=== PATIENT | female | born 2000 | race Hispanic/Latino ===

== ENCOUNTER 2021-02-19 20:25 | Inpatient (IN) | payer BC, OTHER ==
[2021-02-19 21:55] VITALS: BMI 48.4
[2021-02-19] MEDS ORDERED: Promethazine HCl 25 MG/ML VIAL IM PRN (22:50)
[2021-02-19] MEDS ORDERED: Calcium Gluconate 4.6 MEQ in Sodium Chloride 0.9% 100 ML IVPB PRN (22:50)
[2021-02-19] MEDS ORDERED: Butorphanol Tartrate 1 MG/ML VIAL SLOW IVP PRN (22:50)
[2021-02-19] MEDS ORDERED: hydrALAZINE 20 MG/ML VIAL SLOW IVP PRN (22:50)
[2021-02-19] MEDS ORDERED: Ondansetron PF 4 MG/2 ML Vial IVP PRN (22:50)
[2021-02-19] MEDS ORDERED: hydrALAZINE 20 MG/ML VIAL ONE ×2 (22:51→22:58)
[2021-02-19] MEDS ORDERED: hydrALAZINE 20 MG/ML VIAL SLOW IVP SCH (23:00)
[2021-02-19] MEDS ORDERED: Labetalol HCl 100 MG/20 ML VIAL ONE (23:30)
[2021-02-19] MEDS ORDERED: Labetalol HCl 100 MG/20 ML VIAL SLOW IVP SCH (23:30)
[2021-02-19] MEDS ORDERED: Furosemide 20 MG/2 ML VIAL SLOW IVP SCH ×2 (23:30→23:37)
[2021-02-19] MEDS ORDERED: Furosemide 20 MG/2 ML VIAL ONE (23:36)
[2021-02-19 23:37] LABS: Hemoglobin 9.8 g/dL (12.0-15.5); Mean Corpuscular HGB CONC 32.7 g/dL (32.0-36.0); Mean Corpuscular Hemoglobin 29.1 pg (27.0-33.0); Mean Platelet Volume 10.3 fl (7.4-10.4); Platelet Count 179 10x3/uL (150-450); RBC Distribution Width 13.9 % (11.5-14.5); Red Blood Cell (RBC) Count 3.37 10x6/uL (3.90-5.03); White Blood Cell (WBC) Count 13.9 10x3/uL (3.5-10.5)
[2021-02-20 00:11] LABS: Hep B Surf Ag Non-Reactive S/CO (NonReactive)
[2021-02-20] MEDS ORDERED: Enoxaparin Sodium 40 MG/0.4 ML SYRINGE SC SCH ×2 (00:15→09:00)
[2021-02-20 01:31] LABS: Syphilis Antibody Nonreactive (Nonreactive); Syphilis Antibody Index 0.03 S/CO (<1.00 Non-Reactive)
[2021-02-20 01:34] LABS: HBSAg Index 0.16 S/CO (0-0.99)
[2021-02-20] MEDS: Magnesium Sulfate 20 gm/500 ml 20 GM/500 ML BAG IVPB SCH ×3 (03:59→21:12)
[2021-02-20] MEDS ORDERED: Furosemide 20 MG/2 ML VIAL SLOW IVP SCH (05:30)
[2021-02-20 06:06] LABS: ALT (SGPT) 22 U/L (8-55); AST (SGOT) 17 U/L (5-34); Albumin 2.9 g/dL (3.5-5.0); Alkaline Phosphatase 47 U/L (40-110); Anion Gap 19 mmol/L (10-20); BUN (Urea Nitrogen) 8 mg/dL (7.0-18.7); Bilirubin, Total 0.3 mg/dL (0.2-1.2); Calc. Creatinine Clearance 252 mL/min (70-130); Calcium 7.9 mg/dL (7.8-10.44); Carbon Dioxide 23 mmol/L (22-29); Chloride 103 mmol/L (98-107); Globulin 3.5 g/dL (2.4-3.5); Glucose 101 mg/dL (70-105); Potassium 3.8 mmol/L (3.5-5.1); Protein, Total 6.4 g/dL (6.0-8.3); Sodium 141 mmol/L (136-145)
[2021-02-20 06:24] LABS: Hemoglobin 9.4 g/dL (12.0-15.5); MDiff Complete? YES; Mean Corpuscular HGB CONC 32.8 g/dL (32.0-36.0); Mean Corpuscular Hemoglobin 29.1 pg (27.0-33.0); Mean Corpuscular Volume 88.9 fl (81.6-98.3); Mean Platelet Volume 9.3 fl (7.4-10.4); Platelet Count 543 10x3/uL (150-450); RBC Distribution Width 13.9 % (11.5-14.5); Red Blood Cell (RBC) Count 3.23 10x6/uL (3.90-5.03); White Blood Cell (WBC) Count 13.2 10x3/uL (3.5-10.5)
[2021-02-20 06:28] LABS: Band 2 % (5-11); Eosinophils 1 % (0-10); Lymphocytes 17 % (21-51); Metamyelocyte 2 % (0-0); Monocytes 9 % (0-10); Neutrophil 67 % (42-75); Reactive Lymphocytes 2 % (0-10)
[2021-02-20] MEDS: Acetaminophen 325 MG TAB PO PRN ×2 (06:32→11:05)
[2021-02-20] MEDS: Enoxaparin Sodium 40 MG/0.4 ML SYRINGE SC SCH ×2 (11:08→23:54)
[2021-02-21 08:11] LABS: HIV (1/2) Antibody/Antigen Non-Reactive (NonReactive)
[2021-02-21] MEDS: Enoxaparin Sodium 40 MG/0.4 ML SYRINGE SC SCH (13:30)
[2021-02-22] MEDS: Enoxaparin Sodium 40 MG/0.4 ML SYRINGE SC SCH (00:33)
[2021-02-22 08:01] VITALS: BP 121/62; TEMP 98.3
== END 2021-02-22 08:50 | disposition home or self-care (01) | DRG 776 ==
LOC: CSHLD 20:25 → CSHPED 02-21 10:00
PROVIDERS: ADMIT Obstetrics & Gynecology; ATTEND Obstetrics & Gynecology
DX: O14.95 Unspecified pre-eclampsia, complicating the puerperium (principal); Z20.822 Contact with and (suspected) exposure to COVID-19; O99.215 Obesity complicating the puerperium; E66.01 Morbid (severe) obesity due to excess calories
CPT/HCPCS: 36415; 71275; 80053; 83735; 84145; 85025; 86780; 86850; 86900; 86901; 87340; 87389; 93005; 93010; 94799; J0360; J1650; J1940; J3475